=== PATIENT | female | born 2000 | race Asian ===

== ENCOUNTER 2021-08-10 00:39 | Emergency (ER) | payer OTHER ==
[~2021-08-10] VITALS: Ht 152.4 cm; Wt 59.9 kg
[2021-08-10 01:32] LABS: PLATELET COUNT 257 K/uL (152-353)
[2021-08-10 01:39] LABS: POTASSIUM 4.1 mmol/L (3.6-5.2)
[2021-08-10 03:03] VITALS: BP 107/77; TEMP 98.1
== END 2021-08-10 03:03 | disposition home or self-care (01) ==
LOC: ED 00:39
PROVIDERS: Emergency Medicine Emergency Medical Services
DX: N30.00 Acute cystitis without hematuria (principal); K59.09 Other constipation
CPT/HCPCS: 36415; 80048; 81000; 81025; 82150; 83690; 85027; 96360; 96361; 96365; 96375; 99284; J0696; J2270; J2405; Q9963

== ENCOUNTER 2021-08-12 12:56 | Emergency (ER) | payer OTHER ==
[~2021-08-12] VITALS: Ht 152.4 cm; Wt 59.9 kg
[2021-08-12 13:51] LABS: PLATELET COUNT 237 K/uL (152-353)
[2021-08-12 14:05] LABS: POTASSIUM 4.2 mmol/L (3.6-5.2)
[2021-08-12 14:36] VITALS: BP 123/70; TEMP 98.3
== END 2021-08-12 14:36 | disposition home or self-care (01) ==
LOC: ED 12:56
PROVIDERS: Hospitalist
DX: R19.7 Diarrhea, unspecified (principal); K64.8 Other hemorrhoids; K62.89 Other specified diseases of anus and rectum
CPT/HCPCS: 36415; 80053; 81000; 81025; 83690; 85027; 96360; 99284

== ENCOUNTER 2021-10-05 15:23 | Emergency (ER) | payer OTHER ==
[~2021-10-05] VITALS: Ht 152.4 cm; Wt 61.2 kg
[2021-10-05 15:37] VITALS: TEMP 97.2
[2021-10-05 17:40] VITALS: BP 110/60
== END 2021-10-05 17:40 | disposition home or self-care (01) ==
LOC: ED 15:23
DX: S30.0XXA Contusion of lower back and pelvis, initial encounter (principal); S20.229A Contusion of unspecified back wall of thorax, initial encounter; W11.XXXA Fall on and from ladder, initial encounter; Y92.89 Other specified places as the place of occurrence of the external cause
CPT/HCPCS: 96372; 99283; J1885

== ENCOUNTER 2021-11-15 07:13 | Emergency (ER) | payer OTHER ==
[~2021-11-15] VITALS: Ht 152.4 cm; Wt 61.2 kg
[2021-11-15 07:42] LABS: PLATELET COUNT 206 K/uL (152-353)
[2021-11-15 07:58] LABS: POTASSIUM 3.1 mmol/L (3.6-5.2)
[2021-11-15 10:20] VITALS: BP 121/71; TEMP 97.6
== END 2021-11-15 10:20 | disposition home or self-care (01) ==
LOC: ED 07:13
PROVIDERS: Emergency Medicine
DX: R11.2 Nausea with vomiting, unspecified (principal); R19.7 Diarrhea, unspecified; K52.89 Other specified noninfective gastroenteritis and colitis; R53.81 Other malaise; E87.6 Hypokalemia
CPT/HCPCS: 36415; 80048; 81000; 81025; 85027; 93005; 96360; 96365; 99284

== ENCOUNTER 2022-04-02 20:28 | Emergency (ER) | payer OTHER ==
[~2022-04-02] VITALS: Ht 152.4 cm; Wt 59.9 kg
[~2022-04-02 20:28] MED LIST: CLIN300C PO; LEVOFLOXACIN500 MG PO
[2022-04-02 21:10] VITALS: BP 113/67; TEMP 97.7
== END 2022-04-02 21:15 | disposition home or self-care (01) ==
LOC: ED 20:28
DX: M79.675 Pain in left toe(s) (principal); M10.9 Gout, unspecified
CPT/HCPCS: 96372; 99283; J2930

== ENCOUNTER 2022-04-10 15:53 | Emergency (ER) | payer OTHER ==
[~2022-04-10] VITALS: Ht 152.4 cm; Wt 59.9 kg
[2022-04-10 16:05] VITALS: TEMP 97.7
[2022-04-10 17:22] VITALS: BP 91/67
== END 2022-04-10 17:22 | disposition home or self-care (01) ==
LOC: ED 15:53
DX: J20.9 Acute bronchitis, unspecified (principal); B34.9 Viral infection, unspecified; U07.1 COVID-19; F17.210 Nicotine dependence, cigarettes, uncomplicated
CPT/HCPCS: 87502; 87635; 99283; U0003

== ENCOUNTER 2022-04-12 03:45 | Emergency (ER) | payer OTHER ==
[~2022-04-12] VITALS: Ht 152.4 cm; Wt 59.9 kg
[2022-04-12 03:55] VITALS: TEMP 98.8
[2022-04-12 05:10] VITALS: BP 114/62
== END 2022-04-12 05:10 | disposition home or self-care (01) ==
LOC: ED 03:45
DX: N63.11 Unspecified lump in the right breast, upper outer quadrant (principal)
CPT/HCPCS: 81025; 99283

== ENCOUNTER 2022-06-11 23:38 | Emergency (ER) | payer OTHER ==
[~2022-06-11] VITALS: Ht 154.9 cm; Wt 59.9 kg
[2022-06-12 01:00] VITALS: BP 92/58; TEMP 97.8
== END 2022-06-12 01:00 | disposition home or self-care (01) ==
LOC: ED 23:38
DX: S29.011A Strain of muscle and tendon of front wall of thorax, initial encounter (principal); S90.812A Abrasion, left foot, initial encounter; L03.116 Cellulitis of left lower limb; X58.XXXA Exposure to other specified factors, initial encounter; Y92.89 Other specified places as the place of occurrence of the external cause
CPT/HCPCS: 96372; 99283; J1885

== ENCOUNTER 2023-02-16 13:26 | Emergency (ER) | payer OTHER ==
[~2023-02-16] VITALS: Ht 154.9 cm; Wt 59.9 kg
[2023-02-16 13:29] VITALS: BP 114/75; TEMP 98.4
== END 2023-02-16 14:55 | disposition home or self-care (01) ==
LOC: ED 13:26
DX: J06.9 Acute upper respiratory infection, unspecified (principal)
CPT/HCPCS: 87635; 96372; 99282; J1100; U0003